=== PATIENT | female | born 1985 | race Caucasian/White ===

== ENCOUNTER 2020-09-10 12:10 | Emergency (ER) | payer OTHER ==
[~2020-09-10] VITALS: Ht 157.5 cm; Wt 56.7 kg
[2020-09-10 12:23] VITALS: BP 143/93
[2020-09-10] MEDS ORDERED: METHADOSE40 MG PO (12:27)
[2020-09-10] MEDS ORDERED: VENTOLIN HFA 1818 GM INH (13:54)
== END 2020-09-10 14:05 | disposition home or self-care (01) ==
LOC: M.ERS 12:10
DX: U07.1 COVID-19 (principal); Z98.890 Other specified postprocedural states